=== PATIENT | female | born 1980 | race African-American/Black ===

== ENCOUNTER 2016-11-08 14:38 | Emergency (ER) | payer SELFPAY ==
[2016-11-08 14:49] VITALS: BP 135/95
[2016-11-08] MEDS ORDERED: DIPHENHYDRAMINE HCL 50 MG CAPSULE PO ONE (15:16)
[2016-11-08] MEDS ORDERED: HYDROCODONE/ACETAMINOPHEN 5-325 MG TABLET PO ONE (15:16)
[2016-11-08] MEDS ORDERED: PROCHLORPERAZINE MALEATE 10 MG TABLET PO ONE (15:16)
[2016-11-08] MEDS ORDERED: ONDANSETRON 4 MG TAB.RAPDIS PO ONE (15:18)
--- NOTE | 2016-11-08 15:19 | ER Document Report ---
ED Headache - General Chief Complaint: Headache Stated Complaint: HEADACHE Time Seen by Provider: 11/08/16 15:11 Mode of Arrival: Ambulatory Information source: Patient, [facility] Records Notes: 36-year-old female with past history of occasional migraine headaches reports onset 4 days ago of typical headache which is not responding to Tylenol and Tylenol PM. She reports an allergy to NSAIDs and that she developed rashes with Naprosyn, ibuprofen, and Celebrex. There has been some nausea and vomiting with this. There is been no fever. There is some photophobia. TRAVEL OUTSIDE OF THE [place] IN LAST 30 DAYS: No - Related Data Allergies/Adverse Reactions: cefazolin [From Ancef] Allergy (Verified 11/08/16 14:46) phenazopyridine [From Pyridium] Allergy (Verified 11/08/16 14:46) tramadol Allergy (Verified 11/08/16 14:46) Past Medical History - General Information source: Patient, [facility] Records - Social History Smoking Status: Never Smoker Cigarette use (# per day): No Chew tobacco use (# tins/day): No Smoking Education Provided: No Frequency of alcohol use: None Drug Abuse: None Lives with: Family Family History: Reviewed & Not Pertinent Patient has suicidal ideation: No Patient has homicidal ideation: No Renal/ Medical History: Denies: Hx Peritoneal Dialysis - Immunizations Hx Diphtheria, Pertussis, Tetanus Vaccination: Yes Physical Exam - Vital signs Vitals: Temp Pulse Resp BP Pulse Ox 98.6 F 129 H 18 135/95 H 99 11/08/16 14:46 11/08/16 14:46 11/08/16 14:46 11/08/16 14:46 11/08/16 14:46 Course - Re-evaluation Re-evalutation: 11/08/16 16:33 Staff has been unable to locate the patient so I could check on how her head was doing and discharge her home. 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 - Vital Signs Vital signs: Temp Pulse Resp BP Pulse Ox 98.6 F 129 H 18 135/95 H 99 11/08/16 14:46 11/08/16 14:46 11/08/16 14:46 11/08/16 14:46 11/08/16 14:46 Discharge - Discharge Clinical Impression: Muscle tension headache Condition: Stable Disposition: ELOPED
== END 2016-11-08 17:15 | disposition left against medical advice (07) ==
LOC: ER 14:38
DX: G44.209 Tension-type headache, unspecified, not intractable (principal)
CPT/HCPCS: 99281; S0119; S0183

== ENCOUNTER 2017-04-30 21:11 | Emergency (ER) | payer SELFPAY | END 2017-05-01 00:04 | disposition left against medical advice (07) | LOC: ER 21:11 | DX: Z53.21 Procedure and treatment not carried out due to patient leaving prior to being seen by health care provider (principal) ==

== ENCOUNTER 2017-09-29 17:28 | Emergency (ER) | payer SELFPAY ==
[2017-09-29 17:59] VITALS: BP 125/77
--- NOTE | 2017-09-29 18:49 | ER Document Report ---
HPI - HPI Patient complains to provider of: Right foot injury Onset: Yesterday - Morning Onset/Duration: Sudden Pain Level: 3 Context: 37-year-old female rolled her right foot when she got out of bed yesterday morning because her foot was asleep. She went to work today on it it is swollen. She wants to know if it is broken or not. No previous injury. Associated Symptoms: None Exacerbated by: Walking Relieved by: Denies Similar symptoms previously: No Recently seen / treated by doctor: No - ROS ROS below otherwise negative: Yes Systems Reviewed and Negative: Yes All other systems reviewed and negative - MUSCULOSKELETAL Musculoskeletal: REPORTS: Extremity pain - right foot/ankle Past Medical History - General Information source: Patient - Social History Smoking Status: Never Smoker Chew tobacco use (# tins/day): No Frequency of alcohol use: None Drug Abuse: Marijuana Family History: Reviewed & Not Pertinent Patient has suicidal ideation: No Patient has homicidal ideation: No - Medical History Medical History: Negative Renal/ Medical History: Denies: Hx Peritoneal Dialysis Surgical Hx: Negative - Immunizations Hx Diphtheria, Pertussis, Tetanus Vaccination: Yes Vertical Provider Document - CONSTITUTIONAL Agree With Documented VS: Yes Exam Limitations: No Limitations - INFECTION CONTROL TRAVEL OUTSIDE OF THE [place] IN LAST 30 DAYS: No - MUSCULOSKELETAL/EXTREMETIES Musculoskeletal/Extremeties: MAEW, Tender, Edema, Eccymosis - Lateral dorsal right foot Notes: 2+ DP, no bony tenderness in the foot or the ankle - NEURO Level of Consciousness: Alert - DERM Integumentary: No Rash Course - Re-evaluation Re-evalutation: 09/29/17 18:44 Patient does not want crutches and she states she needs to go to work she worked today is able to walk on it. The pre-limb x-ray is negative and I am pending the radiologist interpretation. 09/29/17 18:48 Patient states she cannot take Motrin and she is asking for pain medication. I advised her that it would be better to take crutches and stay of work so that it will not hurt as much. 0Negative 09/29/17 19:10 Negative x-ray per radiologist, pt states the crutches will help, she has a seated job 09/29/17 20:39 - Vital Signs Vital signs: Temp Pulse Resp BP Pulse Ox 98.5 F 79 18 125/77 100 09/29/17 17:58 09/29/17 17:58 09/29/17 17:58 09/29/17 17:58 09/29/17 17:58 Procedures - Immobilization Right Foot Time completed: 18:45 Pre-Proc Neuro Vasc Exam: Normal Immobilizer type: Fernando wrap Performed by: PCT Post-Proc Neuro Vasc Exam: Normal Alignment checked and good: Yes Discharge - Discharge Clinical Impression: Right foot sprain Condition: Good Disposition: HOME, SELF-CARE Instructions: Acetaminophen, Fernando Wrap ([facility]), Use of Crutches ([facility]), Sprain ([facility] ) Additional Instructions: Fernando bandage Tylenol up to 4000 mg per day Return to the emergency room any concerns Forms: Return to Work
--- NOTE | 2017-09-29 19:06 | RADIOLOGY REPORT (SQ) ---
EXAM DESCRIPTION: ANKLE RIGHT COMPLETE COMPLETED DATE/TIME: 09/29/2017 6:52 pm REASON FOR STUDY: injury COMPARISON: None. NUMBER OF VIEWS: Three views. TECHNIQUE: AP, lateral, and oblique radiographic images acquired of the right ankle. LIMITATIONS: None. FINDINGS: MINERALIZATION: Normal. BONES: No acute fracture or dislocation. No worrisome bone lesions. JOINTS: No effusions. SOFT TISSUES: No soft tissue swelling. No foreign body. OTHER: No other significant finding. IMPRESSION: NEGATIVE STUDY OF THE RIGHT ANKLE. NO RADIOGRAPHIC EVIDENCE OF ACUTE INJURY. TECHNICAL DOCUMENTATION: JOB ID: [id number] [employer]- All Rights Reserved Reading location - IP/workstation name: [email or web address]
--- NOTE | 2017-09-29 19:07 | RADIOLOGY REPORT (SQ) ---
EXAM DESCRIPTION: FOOT RIGHT COMPLETE COMPLETED DATE/TIME: 09/29/2017 6:52 pm REASON FOR STUDY: injury COMPARISON: None. NUMBER OF VIEWS: Three views. TECHNIQUE: AP, lateral and oblique radiographic images acquired of the right foot. LIMITATIONS: None. FINDINGS: MINERALIZATION: Normal. BONES: No acute fracture or dislocation. No worrisome bone lesions. JOINTS: No effusions. SOFT TISSUES: No soft tissue swelling. No foreign body. OTHER: No other significant finding. IMPRESSION: NEGATIVE STUDY OF THE RIGHT FOOT. NO RADIOGRAPHIC EVIDENCE OF ACUTE INJURY. TECHNICAL DOCUMENTATION: JOB ID: [id number] [employer]- All Rights Reserved Reading location - IP/workstation name: [email or web address]
== END 2017-09-29 19:22 | disposition home or self-care (01) ==
LOC: ER 17:28
DX: S93.601A Unspecified sprain of right foot, initial encounter (principal); M79.671 Pain in right foot; M25.571 Pain in right ankle and joints of right foot; X50.1XXA Overexertion from prolonged static or awkward postures, initial encounter; Y92.003 Bedroom of unspecified non-institutional (private) residence as the place of occurrence of the external cause
CPT/HCPCS: 99283